=== PATIENT | male | born 1935 | race Caucasian/White ===

== ENCOUNTER 2016-12-29 05:50 | Inpatient (IN) | payer OTHER ==
[2016-12-11 10:28] LABS: % IMMATURE GRANULYOCYTES 0.2 % (0.0-1.1); ABSOLUTE IMMATURE GRANULOCYTES 0.01 10^3/uL (0.00-0.10); ADD DIFF? NO; ADD MORPH? NO; ADD SCAN? NO; ATYPICAL LYMPHOCYTE FLAG 0 (0-99); FRAGMENT RBC FLAG 0 (0-99); HEMATOCRIT 46.3 % (40.0-51.0); HEMOGLOBIN 15.1 g/dL (13.7-17.5); LEFT SHIFT FLG 0 (0-99); LIPEMIA HEMOLYSIS FLAG 80 (0-99); MEAN CELL HEMOGLOBIN 30.3 pg (27.9-34.1); MEAN CELL HEMOGLOBIN CONCENTR. 32.6 g/dL (32.4-36.7); MEAN CELL VOLUME 92.8 fL (81.5-99.8); MEAN PLATELET VOLUME 10.8 fL (8.7-11.7); PLATELET CLUMPS FLAG 0 (0-99); PLATELET COUNT 167 10^3/uL (150-400); RED BLOOD CELL COUNT 4.99 10^6/uL (4.40-6.38); RED CELL DISTRIBUTION WIDTH 13.2 % (11.5-15.2)
--- NOTE | 2016-12-28 18:53 | GHP ---
[f rep st] PREOP HISTORY AND PHYSICAL DATE OF ADMISSION: 12/29/2016 HISTORY: The patient is an 81-year-old male, who presents with left knee osteoarthritis. His knee is painful, he has limited motion and swelling, he has limited tolerance of activity such as standin g or walking, his gait is affected. Therapies have included multiple rounds of viscosupplementation , previous knee arthroscopy, and he has tried to remain active and keep his legs strong. X-ray shows significant osteoarthritis with decreased joint space, degenerative spurring. A left to sruthi knee arthroplasty is planned. PAST MEDICAL HISTORY: Remarkable for intermittent atrial fibrillation. He also has hypertension an d elevated lipids. He has also had vitamin D deficiency. His surgeries include a left knee arthros copy in 2015. He has also had an interposition arthroplasty of his thumb, a right knee scope back i n 2012. ALLERGIES: Penicillin. MEDICATIONS: Atorvastatin 10 mg p.o. daily, Pradaxa 150 mg p.o. daily; and he has stopped that appr opriately 7 doses before surgery, metoprolol 25 mg p.o. daily, vitamins and supplements, Flomax 0.4 mg p.o. daily. SOCIAL HISTORY: Former smoker. REVIEW OF SYSTEMS: Positive from a cardiopulmonary standpoint for his elevated lipids, his intermit tent atrial fibrillation and hypertension. PHYSICAL EXAMINATION: GENERAL: The patient is a well-developed, well-nourished male, in no apparen t distress. HEAD AND NECK: Normocephalic, atraumatic. CHEST: Clear. CARDIOVASCULAR: Regular ra te and rhythm. ABDOMEN: Soft. NEUROLOGIC: He is alert and oriented x3. EXTREMITIES: Left knee shows a slight flexion contracture. He is flexing to about 110 degrees. He has a small effusion. He tends towards varus alignment. SKIN: Intact. NEUROVASCULAR: Intact. DIAGNOSTIC STUDIES: X-rays, as noted, show degenerative changes consistent with osteoarthritis, dec reased joint space, subchondral sclerosis, degenerative lipping, narrowing of joint space. IMPRESSION: Left knee osteoarthritis. PLAN: Left total knee arthroplasty. Benefits and risks of surgery have been reviewed, including th e risks of infection, damage to blood vessels or nerves, failure or loosening of components and need for revision, blood clot in the leg or lung, bleeding and need for transfusion. The rigorous natur e of the rehabilitation has also been explained. He has signed his consent form and wishes to proceed. /[id number]/MODL
[2016-12-29] MEDS ORDERED: FAMOTIDINE 20 MG TAB PO ONE (06:00)
[2016-12-29] MEDS ORDERED: TRANEXAMIC ACID 800 MG in NS 100 ML IV ONE (06:00)
[2016-12-29] MEDS ORDERED: ROPI/epiNEPH/KETOROLAC JOINT COCKTAIL IU ONE (06:00)
[2016-12-29] MEDS ORDERED: ACETAMINOPHEN 325 MG TAB PO ONE (06:00)
[2016-12-29] MEDS ORDERED: CEFAZOLIN 2 GM/DEXTR 100 ML IV ONE (06:00)
[2016-12-29] MEDS ORDERED: DEXAMETHASONE 4 MG/ML VIAL IVP ONE (06:00)
[2016-12-29] MEDS ORDERED: POVIDONE-IODINE 20 ML in SODIUM CL IRRIG SOLUTION 500 ML IRR ONE (06:00)
[2016-12-29] MEDS ORDERED: CHLORHEXIDINE GLUC HIBICLENS 118 ML BTL TP ONE (06:00)
[2016-12-29] MEDS ORDERED: ceFAZolin 1 GM/5 ML SYR ONE (06:53)
[2016-12-29] MEDS ORDERED: MIDAZOLAM 2 MG/2 ML VIAL ONE (07:09)
[2016-12-29] MEDS ORDERED: PROPOFOL/EMULSION 500 MG/50 ML BOTTLE IV ONE (07:22)
[2016-12-29] MEDS ORDERED: ROPIVACAINE HCL 150 MG/30 ML INJ ONE (08:16)
[2016-12-29] MEDS ORDERED: epHEDrine SULFATE 10 MG/ML SYR ONE ×2 (08:16→09:32)
[2016-12-29] MEDS ORDERED: ONDANSETRON 4 MG/2 ML VIAL ONE (09:31)
--- NOTE | 2016-12-29 10:33 | GOP ---
[f rep st] OPERATIVE REPORT DATE OF OPERATION: 12/29/2016 SURGEON: Kem Hinton MD SCHEDULE MAKER: Rian Kilpatrick [facility], [facility] ANESTHESIOLOGIST: Ayesha Angel MD. PREOPERATIVE DIAGNOSIS: Left knee osteoarthritis. POSTOPERATIVE DIAGNOSIS: Left knee osteoarthritis. PROCEDURE PERFORMED: Left total knee arthroplasty. FINDINGS: SPECIMENS: Included excised bone. ESTIMATED BLOOD LOSS: Minimal. INDICATIONS: The patient is an 81-year-old male who presents with history, exam, and x-rays consist ent with severe left knee osteoarthritis for which he has tried appropriate conservative measures, i ncluding exercises, previous scope debridement, multiple rounds of viscosupplementation. Left total knee arthroplasty is planned. DESCRIPTION OF PROCEDURE: The patient was taken to the operating room, and in the sitting position, a spinal anesthetic was administered by Dr. Angel, and we will plan to do an adductor block in pos top recovery. He received IV sedation. He received 2 g of IV Ancef. He received tranexamic acid i n the usual protocol. The tourniquet was fit high on the left thigh. The left leg was elevated, ex sanguinated, and the tourniquet inflated to 275 mmHg. I made a longitudinal incision in the midline , dissected through subcutaneous tissue. I used a medial parapatellar arthrotomy. Patella was inve rted, debrided, measured to be 24 mm thick. 9 mm of bone cartilage were removed, and I sized the landry rface as a 38 trial. I drilled appropriate PEG holes, and a 38 mm diameter trial was an excellent f it. The knee was then flexed. I drilled a charter pilot hole in the distal femur using an intramedullary d evice for the femur and a 5-degree cutting block. I used an extra 2 mm of resection for the slight flexion contracture. I sized the femur between a 7 and 8. I downsized to a 7, advanced the trials a bit anterior, and made appropriate anterior-posterior chamfer cuts and the notch in preparation fo r this bi-cruciate stabilized knee. I then flexed the knee, placed posterior and lateral retractors . I used an extramedullary device for cutting the tibia. I designed its alignment, posterior slope , appropriate rotation, and appropriate amount of bone resection, and a tibial cut was made. I size d this surface to a 6. The size 6 was pinned on 1 side. I fine-tuned the rotation, marked this on the anterior tibia. I then completed the tibial prep. The components were all removed. Copious an tibiotic jet lavage irrigation was used to dry the surfaces. Methylmethacrylate was applied to the tibia, and the size [address] Cement was applied to the femur, and likewise, the component hammered into place, and then a trial liner was placed, and the knee extended. The p atellar component was held with a clamp over its cement mantle. After the cement had hardened, I di d trial reductions. I found the 9 mm spacer allowed full extension, excellent roll back and flexion , and appropriate ligamentous stability, so the size 9 mm thick crosslink polyethylene liner was sna pped into place. The knee was irrigated with antibiotic solution as well as a dilute Betadine solut ion. The arthrotomy was closed with interrupted wuwhuf-pd-cssbv sutures of 0 Mersilene, subcutaneou s tissue with 2-0 Monocryl, and the skin with jack. The wound was dressed with Betadine-soaked A daptic, 4 x 4's, sterile Webril, and long leg BCEK stocking. DRAINS: None. COUNTS: All counts were correct. DISPOSITION: The patient was taken in stable condition to recovery. TOURNIQUET TIME: 90 minutes. My surgical device sales representative was a medical necessity for this total knee replacement. SUMMARY OF COMPONENTS: This is a [employer] Journey bi-cruciate stabilized knee. All compone nts cemented. The femur is Oxinium, femur size 7, tibia size 6. The crosslink polyethylene liner i s 9 mm thick, and the patella is 38. /[id number]/MODL
[2016-12-29] MEDS ORDERED: LR 1,000 ML IV ONE (10:49)
[2016-12-29] MEDS ORDERED: LIDOCAINE 1% 5 ML SDV ID PRN (10:49)
[2016-12-29] MEDS ORDERED: ONDANSETRON 4 MG/2 ML VIAL IVP PRN ×2 (11:46→13:56)
[2016-12-29] MEDS ORDERED: ONDANSETRON DISINTEGRATING 4 MG TAB PO PRN ×2 (11:47→13:56)
[2016-12-29] MEDS ORDERED: BISACODYL 10 MG SUPP PR PRN (13:56)
[2016-12-29] MEDS ORDERED: oxyCODONE IR 5 MG TAB PO PRN (13:56)
[2016-12-29] MEDS ORDERED: PROMETHAZINE HCL 25 MG/ML INJ IVP PRN (13:56)
[2016-12-29] MEDS ORDERED: PHARMACY PAIN CONSULT 1 EA MISC PRN (13:56)
[2016-12-29] MEDS ORDERED: diphenhydrAMINE 25 MG CAP PO PRN (13:56)
[2016-12-29] MEDS ORDERED: POLYETHYLENE GLYCOL 3350 17 GM PKT PO PRN (13:56)
[2016-12-29] MEDS ORDERED: DIPHENOXYLATE/ATROPINE LOMOTIL 1 TAB PO PRN (13:56)
[2016-12-29] MEDS ORDERED: LACTULOSE 20 GM/30 ML UDCUP PO PRN (13:56)
[2016-12-29] MEDS ORDERED: KETOROLAC 30 MG/1 ML SDV IVP PRN (13:56)
[2016-12-29] MEDS ORDERED: CYCLOBENZAPRINE 10 MG TAB PO PRN (13:56)
[2016-12-29] MEDS ORDERED: PROMETHAZINE HCL 25 MG SUPPR PR PRN (13:56)
[2016-12-29] MEDS ORDERED: METOCLOPRAMIDE 10 MG/2 ML VIAL IVP PRN (13:56)
[2016-12-29] MEDS ORDERED: TEMAZEPAM 15 MG CAP PO PRN (13:56)
[2016-12-29] MEDS ORDERED: MAGNESIUM HYDROXIDE 30 ML UDCUP PO PRN (13:56)
[2016-12-29] MEDS ORDERED: LR 1,000 ML IV SCH (14:00)
[2016-12-29] MEDS: ceFAZolin 2 GM/DEXTROSE 100 ML IV SCH ×2 (14:51→22:37)
[2016-12-29] MEDS: oxyCODONE IR 5 MG TAB PO PRN ×2 (15:05→16:05)
[2016-12-29] MEDS: ACETAMINOPHEN 325 MG TAB PO SCH (17:47)
[2016-12-29] MEDS ORDERED: ATORVASTATIN CALCIUM 10 MG TAB PO SCH (18:00)
[2016-12-29] MEDS: SENNOSIDES/DOCUSATE SODIUM TAB PO SCH (19:57)
[2016-12-29] MEDS: DABIGATRAN ETEXILATE MESYL 150 MG CAP PO SCH (19:58)
[2016-12-29] MEDS: FAMOTIDINE 20 MG TAB PO SCH (19:58)
[2016-12-29] MEDS: ASPIRIN 325 MG TAB PO SCH ×3 (20:06→22:44)
[2016-12-29 23:19] VITALS: RESP 16
[2016-12-30 05:01] LABS: HEMOGLOBIN 13.1 g/dL (13.7-17.5)
[2016-12-30] MEDS: ACETAMINOPHEN 325 MG TAB PO SCH ×3 (06:22→12:54)
--- NOTE | 2016-12-30 08:08 | SOAPPROG ---
SOAP Progress Note Assessment/Plan: Assessment: 12/30/16 POD#1 L TKA, Hct 39, pain mild, did require straight cath, xray fine Plan: 12/30/16 08:05 PT/OT and home, oxy, pradaxa, home PT Objective: Vital Signs Temp Pulse Resp BP Pulse Ox 36.5 C 60 16 112/63 97 12/29/16 23:17 12/29/16 23:17 12/29/16 23:17 12/29/16 23:17 12/29/16 23:17 Laboratory Results 12/30/16 04:32 12/29/16 12/30/16 12/31/16 05:59 05:59 05:59 Intake Total 2760 Output Total 3060 Balance -300 ICD10 Worksheet Patient Problems: Problems Problem Status Onset Osteoarthritis of left knee Acute - ICD10 Problem Qualifiers (1) Osteoarthritis of left knee Qualifiers: Osteoarthritis type: O
[2016-12-30] MEDS ORDERED: TAMSULOSIN HCL 0.4 MG CAP PO SCH (09:00)
[2016-12-30] MEDS ORDERED: METOPROLOL SUCCINATE XR 25 MG TAB PO SCH (09:00)
[2016-12-30] MEDS ORDERED: CHOLECALCIFEROL VIT D3 2,000 UNITS TAB/CAP PO SCH (09:00)
[2016-12-30] MEDS: ASPIRIN 325 MG TAB PO SCH (09:10)
[2016-12-30] MEDS: DABIGATRAN ETEXILATE MESYL 150 MG CAP PO SCH (09:11)
--- NOTE | 2016-12-30 09:11 | PDIAF ---
- Diagnosis Code Status: Full Code - Medication Management Discharge Medications: Medications to Continue on Transfer Atorvastatin Calcium [Lipitor 10 mg (*)] 10 mg PO DAILY@1800 11/28/16 [Last Taken 12/25/16] Dabigatran Etexilate Mesyl [Pradaxa 150 MG (*)] 150 mg PO BID 11/28/16 [Last Taken 12/25/16 19:00] Multivitamins [Multivitamin (*)] 1 each PO DAILY 11/28/16 [Last Taken 12/25/16] Tamsulosin HCl 0.4 mg PO DAILY 11/28/16 [Last Taken 12/25/16] Cholecalciferol Vit D3 [Vitamin D3 2000 units tab (OTC)] 4,000 units PO DAILY [Last Taken 12/25/16] Metoprolol Succinate Xr [Toprol Xl 25 mg (*)] 12.5 mg PO DAILY 12/05/16 [Last Taken 12/29/16 05:00] Tamsulosin HCl [Flomax 0.4 MG (*)] 0.4 mg PO DAILY #0 cap 12/30/16 [Last Taken Unknown] oxyCODONE IR [Oxycodone Ir (*)] 5 - 10 mg PO Q3HRS PRN #0 tab 12/30/16 [Last Taken Unknown] Discharge Medications: Refer to the Discharge Home Medication list for PRN reason. - Orders Services needed: Home Care, Physical Therapy Home Care Face to Face: I certify that this patient was under my care and that I had the required [id number]-rv-[id number] encounter meeting the encounter requirements on the discharge day. My findings support the fact that the patient is homebound as defined in CMS Chapter 7 Medicare Benefits Manual 30.1.1, The condition of the patient is such that there exists a normal inability to leave home and consequently, leaving home would require a considerable and taxing effort. Diet Recommendation: no restrictions on diet Diet Texture: Regular Texture Diet Date to Remove Sutures/Ja: 01/12/17 - Follow Up Care Current Providers and Referrals: NONE *PRIMARY CARE P,. [Primary Care Provider] -
[2016-12-30] MEDS: SENNOSIDES/DOCUSATE SODIUM TAB PO SCH (09:14)
[2016-12-30] MEDS: FAMOTIDINE 20 MG TAB PO SCH (09:15)
[2016-12-30 12:12] VITALS: BP 140/69; PULSE 68; TEMP 98.2; O2SAT 95
[2016-12-30] MEDS: oxyCODONE IR 5 MG TAB PO PRN (12:49)
== END 2016-12-30 13:18 | disposition home health service (06) | DRG 470 ==
LOC: F3N 05:50
PROVIDERS: ADMIT Orthopaedic Surgery; ATTEND Orthopaedic Surgery
PROC: 0SRD0J9 Replacement of Left Knee Joint with Synthetic Substitute, Cemented, Open Approach (ICD-10-PCS; principal; 2016-12-29 07:15)
DX: M17.12 Unilateral primary osteoarthritis, left knee (principal); I48.91 Unspecified atrial fibrillation; I10 Essential (primary) hypertension; E78.5 Hyperlipidemia, unspecified; E55.9 Vitamin D deficiency, unspecified; Z87.891 Personal history of nicotine dependence
CPT/HCPCS: 97110-GP; 97116-GP; 97161-GP; 97165-GO; 97530-GP; C1713; G8978-GP-CI; G8979-GP-CI; G8980-GP-CI; G8987-GO-CI; G8988-GO-CI; G8989-GO-CI; J0171; J0690; J1100; J1885; J2250; J2405; J2704; J2795

== ENCOUNTER 2017-06-01 05:41 | Inpatient (IN) | payer OTHER ==
--- NOTE | 2017-05-31 11:36 | GHP ---
[f rep st] PREOP HISTORY AND PHYSICAL DATE OF ADMISSION: 06/01/2017 SURGERY DATE: 06/01/2017. HISTORY: The patient is an 81-year-old male who presents with persistent right knee pain, stiffness and swelling. He has significant right knee osteoarthritis. This affects his range of motion, affec ts his gait including activities of daily living. He has tried appropriate conservative measures and he has even had a previous knee scope and debridement and meniscal work some years ago. His x-rays show osteoarthritis, narrowing of the medial joint space especially. A right total knee arthroplasty is planned. He has had a successful left total knee arthroplasty. PAST MEDICAL HISTORY: Significant for atrial fibrillation, hyperlipidemia, osteoarthritis. CURRENT MEDICATIONS: Include metoprolol ER 25 mg extended release q.24 hours, atorvastatin 10 mg p.o . daily, Pradaxa 150 mg p.o. daily and he will stop this medication as instructed 7 doses before his surgery, tamsulosin 0.4 mg tablets. ALLERGIES: He has an allergy to penicillin. He tolerated Ancef with his opposite total knee. SOCIAL HISTORY: He is a former smoker. He is a retired teacher. SURGICAL HISTORY: Includes a left total knee arthroplasty in December of 2016. He has had his knees sco ped, the left side in 2015, his right knee in 2012. He has had an interposition arthroplasty of the CMC joint of his hand in 2013. REVIEW OF SYSTEMS: Positive from the cardiac standpoint for atrial fibrillation and he has been anti coagulated. PHYSICAL EXAMINATION: GENERAL: The patient is a well-developed, well-nourished male, in no apparent distress. HEAD AND NECK: Normocephalic, atraumatic. CHEST: Clear. CARDIOVASCULAR: Regular rate and rhythm. ABDOMEN: Soft. NEUROLOGIC: He is alert and oriented x3. EXTREMITIES: Examination o f the right knee shows about 125 degrees of flexion. Slight flexion contracture. He tends toward va fariha alignment. He has tenderness along the medial joint line. Small effusion. NEUROVASCULAR: Skin is intact. IMAGING: X-rays show tricompartment osteoarthritis. He has narrowing of joint space, especially med ially. IMPRESSION: Right knee osteoarthritis. PLAN: A right total knee arthroplasty. Benefits and risks of surgery have been reviewed with the xochilt epstein. He understands that the risks include infection, damage to blood vessel or nerve, failure or loosening of components, blood clot in the leg or lungs, bleeding and the need for transfusion. We w ill resume his Pradaxa postoperatively. This worked out fine for him last time. He is well aware of the rehabilitation, is anxious to proceed. Has signed his consent form. /[id number]/MODL
[2017-06-01] MEDS ORDERED: ROPIVACAINE 0.2% 80 MG, EPINEPHrine 0.2 MG, KETOROLAC TROMETHAMINE 30 MG in BAG 0 ML IU ONE (06:00)
[2017-06-01] MEDS ORDERED: TRANEXAMIC ACID 800 MG in NS 100 ML IV ONE (06:00)
[2017-06-01] MEDS ORDERED: POVIDONE-IODINE 20 ML in SODIUM CL IRRIG SOLUTION 500 ML IRR ONE (06:00)
[2017-06-01] MEDS ORDERED: DEXAMETHASONE 4 MG/ML VIAL IVP ONE (06:02)
[2017-06-01] MEDS ORDERED: FAMOTIDINE 20 MG TAB PO ONE (06:02)
[2017-06-01] MEDS ORDERED: ACETAMINOPHEN 325 MG TAB PO ONE (06:02)
[2017-06-01] MEDS ORDERED: ceFAZolin 2 GM/SWFI 2 GM/20 ML SYR IVP ONE (06:02)
[2017-06-01] MEDS ORDERED: LR 1,000 ML IV ONE (06:19)
[2017-06-01] MEDS ORDERED: LIDOCAINE 1% 2 ML INJ ID PRN (06:19)
[2017-06-01] MEDS ORDERED: ceFAZolin 1 GM/5 ML SYR ONE (06:21)
[2017-06-01] MEDS ORDERED: PROPOFOL/EMULSION 500 MG/50 ML BOTTLE IV ONE (06:56)
[2017-06-01] MEDS ORDERED: LIDOCAINE 2% 5 ML SDV ONE (07:00)
[2017-06-01] MEDS ORDERED: BUPIVACAINE 0.5% 30 ML SDV ONE (07:02)
--- NOTE | 2017-06-01 07:50 | PDANEPAE ---
ANE History of Present Illness right knee OA for TKA ANE Past Medical History - Cardiovascular History Hx Hypertension: Yes Hx Arrhythmias: Yes Hx Chest Pain: No Hx Coronary Artery / Peripheral Vascular Disease: No Hx CHF / Valvular Disease: No Hx Palpitations: No Cardiovascular History Comment: afib. htn. sees Dr. Renee at [facility] - Pulmonary History Hx COPD: No Hx Asthma/Reactive Airway Disease: No Hx Recent Upper Respiratory Infection: No Hx Oxygen in Use at Home: No Hx Sleep Apnea: Yes Sleep Apnea Screening Result - Last Documented: Positive Pulmonary History Comment: chato triggers - Neurologic History Hx Cerebrovascular Accident: No Hx Seizures: No Hx Dementia: No - Endocrine History Hx Diabetes: No Obesity: no - Renal History Hx Renal Disorders: Yes Renal History Comment: bph - Liver History Hx Hepatic Disorders: No - Neurological & Psychiatric Hx Hx Neurological and Psychiatric Disorders: No - Cancer History Hx Cancer: No - Congenital Disorder History Hx Congenital Disorders: No - GI History Hx Gastrointestinal Disorders: No - Other Health History Other Health History: wears bilateral hearing aides. wears glasses - Chronic Pain History Chronic Pain: Yes (right knee) - Surgical History Prior Surgeries: 12/29/16 left TKA with Jamaal. bilateral knee scopes. cataract bilateral ANE Review of Systems Review of systems is: negative Review of Systems: - Exercise capacity METS (RN): 4 METS ANE Patient History - Allergies Allergies/Adverse Reactions: Penicillins Allergy (Unknown, Verified 04/28/17 16:25) Other-Enter Comments - Home Medications Home medications: home medication list seen and reviewed Home Medications: Atorvastatin Calcium [Lipitor 10 mg (*)] 10 mg PO DAILY@1800 11/28/16 [Last Taken 05/31/17 18:00] Dabigatran Etexilate Mesyl [Pradaxa 150 MG (*)] 150 mg PO BID 11/28/16 [Last Taken 05/28/17] Multivitamins [Multivitamin (*)] 1 each PO DAILY 11/28/16 [Last Taken 05/31/17] Tamsulosin HCl 0.4 mg PO DAILY 11/28/16 [Last Taken 06/01/17 05:00] Cholecalciferol Vit D3 [Vitamin D3 2000 units tab (OTC)] 4,000 units PO DAILY [Last Taken 05/31/17] Metoprolol Succinate Xr [Toprol Xl 25 mg (*)] 12.5 mg PO DAILY 12/05/16 [Last Taken 05/31/17 07:00] Acetaminophen [Tylenol ES 500 mg (*)] 500 - 1,000 mg PO Q6 PRN 04/21/17 [Last Taken Unknown] - NPO status NPO Since - Liquids (Date): 05/31/17 NPO Since - Liquids (Time): 21:30 NPO Since - Solids (Date): 05/31/17 NPO Since - Solids (Time): 14:00 - Anes Hx Anes Hx: no prior problems - Smoking Hx Smoking Status: Former smoker - Family Anes Hx Family Hx Anesthesia Complications: none ANE Labs/Vital Signs - Vital Signs Blood Pressure: 136/77 Heart Rate: 60 Respiratory Rate: 20 O2 Sat (%): 96 Height: 172.72 cm Weight: 79.379 kg ANE Physical Exam - Airway Neck exam: FROM Mallampati Score: Class 1 Mouth exam: normal dental/mouth exam - Pulmonary Pulmonary: no respiratory distress - Cardiovascular Cardiovascular: regular rate and rhythym - ASA Status ASA Status: III ANE Anesthesia Plan Anesthesia Plan: spinal Regional Anesthesia: single shot NB, adductor canal FNB Urgent/Emergent Case: Jo cardenas completed preop but documented later for safe timely pt care
[2017-06-01] MEDS ORDERED: ONDANSETRON 4 MG/2 ML VIAL IVP PRN ×2 (08:16→09:28)
[2017-06-01] MEDS ORDERED: OXYCODONE/APAP 5/325 TAB PO PRN (08:16)
[2017-06-01] MEDS ORDERED: ALBUTEROL 3 ML DEYVIAL IH PRN (08:16)
[2017-06-01] MEDS ORDERED: NALOXONE HCL 0.4 MG/ML INJ IVP PRN (08:16)
[2017-06-01] MEDS ORDERED: LR 500 ML IV PRN (08:16)
[2017-06-01] MEDS ORDERED: ACETAMINOPHEN 500 MG TAB PO PRN (08:16)
[2017-06-01] MEDS ORDERED: HYDROmorphONE/DILAUDID 1 MG/ML INJ IVP PRN (08:16)
[2017-06-01] MEDS ORDERED: fentaNYL 100 MCG/2 ML INJ IVP PRN (08:16)
[2017-06-01] MEDS ORDERED: LABETALOL HCL 50 MG/10 ML SYR IVP PRN (08:16)
[2017-06-01] MEDS ORDERED: PROPOFOL 200 MG/20 ML VIAL ONE (08:57)
[2017-06-01] MEDS ORDERED: DIPHENOXYLATE/ATROPINE LOMOTIL 1 TAB PO PRN (09:28)
[2017-06-01] MEDS ORDERED: METOCLOPRAMIDE 10 MG/2 ML VIAL IVP PRN (09:28)
[2017-06-01] MEDS ORDERED: PROMETHAZINE HCL 25 MG/ML INJ IVP PRN (09:28)
[2017-06-01] MEDS ORDERED: MAGNESIUM HYDROXIDE 30 ML UDCUP PO PRN (09:28)
[2017-06-01] MEDS ORDERED: BISACODYL 10 MG SUPP PR PRN (09:28)
[2017-06-01] MEDS ORDERED: POLYETHYLENE GLYCOL 3350 17 GM PKT PO PRN (09:28)
[2017-06-01] MEDS ORDERED: diphenhydrAMINE 25 MG CAP PO PRN (09:28)
[2017-06-01] MEDS ORDERED: LACTULOSE 20 GM/30 ML UDCUP PO PRN (09:28)
[2017-06-01] MEDS ORDERED: KETOROLAC 30 MG/1 ML SDV IVP PRN (09:28)
[2017-06-01] MEDS ORDERED: TEMAZEPAM 15 MG CAP PO PRN (09:28)
[2017-06-01] MEDS ORDERED: CYCLOBENZAPRINE 10 MG TAB PO PRN (09:28)
[2017-06-01] MEDS ORDERED: ONDANSETRON DISINTEGRATING 4 MG TAB PO PRN (09:28)
[2017-06-01] MEDS ORDERED: PROMETHAZINE HCL 25 MG SUPPR PR PRN (09:28)
[2017-06-01] MEDS ORDERED: LR 1,000 ML IV SCH (09:30)
--- NOTE | 2017-06-01 09:35 | POSTANESTH ---
Post Anesthetic Evaluation Cardiovascular Status: Normal, Stable Respiratory Status: Normal, Stable Level of Consciousness/Mental Status: Can Participate in Eval Pain Control: Adequate, Prn Tx Ordered Nausea/Vomiting Control: Adequate, Prn Tx Ordered Complications Possibly Related to Anesthesia: None Noted
--- NOTE | 2017-06-01 10:19 | GOP ---
[f rep st] OPERATIVE REPORT DATE OF OPERATION: 06/01/2017 SURGEON: Kem Hinton MD HYDROELECTRIC PLANT STRUCTURAL ENGINEER: Rian Kilpatrick, CSFA, LSA PREOPERATIVE DIAGNOSIS: Right knee osteoarthritis. POSTOPERATIVE DIAGNOSIS: Right knee osteoarthritis. PROCEDURE PERFORMED: Right total knee arthroplasty. FINDINGS: SPECIMENS: Include excised bone. ESTIMATED BLOOD LOSS: minimal. INDICATIONS: The patient presents with right knee osteoarthritis by history, exam and x-rays. DESCRIPTION OF PROCEDURE: The patient was taken to the operating room and seated on the operating ta ble. A spinal anesthetic was provided. He was then placed supine. I used a Quiroz catheter on this case because on last total joint, he had urinary retention issues. He received IV sedation. He rece ived 2 g of IV Ancef. He received his 1st dose of tranexamic acid. A roll was placed beneath the ri [facility] hip to neutralize rotation of his right knee. The right leg was prepped and draped out with chlo rhexidine in the usual fashion. The limb was elevated and exsanguinated. The tourniquet was inflate d to 275 mmHg. I made a longitudinal incision in the midline. I used a medial parapatellar arthroto my. I inverted the patella. I measured its thickness at 25 mm. I removed 9 mm of cartilage and bon e to accommodate the implant. The patella was sized to a 38. I drilled peg holes, and the combinati on of the patella with the trial re-established the thickness and this was a good fit on the patellar surface. The patella was inverted. The knee was flexed. I drilled a corporate pilot hole in the distal femu r using intramedullary alignment jig on the femur, 5 degrees of valgus, +2 extra cut for his small fl exion contracture; and a distal cut was made. I extended the knee and marked the tibial surface to m ark the minimum cut necessary there. I sized the femur between a 7 and 8. I downsized to a 7, moved the cutting block anteriorly and completed my anterior, posterior and chamfer cuts as well as the no tch cuts for this bi-cruciate stabilized knee. I used an extramedullary device on the tibia, I adjus beck for posterior slope and rotation. I made a perpendicular cut. I sized the tibial surface to a s ize 6 and made sure it was a correct fit and not overlapping. I dialed in its rotation and completed the tibial prep. All components were removed. I jet lavaged all the surfaces. Cement was applied to the tibia, and the tibial component was hammered into place. Likewise, cement was applied to the femur, the femoral component was applied and the patellar component was held with a clamp. Once the cement had hardened, I went through a series of trial reductions. I found that a 9 mm insert was bettie ropriate, and the Crosslink poly 9 mm insert was snapped into the tibial tray. I used antibiotic irr igation including a Betadine rinse. I used a joint cocktail infiltrated through the soft tissues as well. The knee had nice extension, had good rollback in flexion and appropriate collateral stability . The arthrotomy was closed with interrupted cqfszo-gr-rxupd sutures of 0 Mersilene, subcutaneous ti ssue with 2-0 Monocryl. I closed the skin with interrupted 3-0 Prolene vertical mattress sutures. T he wound was dressed with Betadine-soaked Adaptic, 4 x 4, sterile Webril, and long-leg BECK stocking. All counts were correct, and the patient was taken in stable condition to recovery. COMPLICATIONS: There were no complications. DRAINS: No drains. TOURNIQUET TIME: 71 minutes. SUMMARY OF COMPONENTS: This is a [employer]hew Journey knee, bi-cruciate stabilized, all componen ts cemented. The femur is Oxinium. The articular tray is Crosslink. The femur is a size 7, the tib ia a size 6, patella 38 mm, and the liner 9 mm thick. My social services assistant was a medical necessity for this joint replacement. /[id number]/MODL
--- NOTE | 2017-06-01 10:19 | GOP ---
[f rep st] OPERATIVE REPORT DATE OF OPERATION: 06/01/2017 SURGEON: Kem Hinton MD IRON WORKER FOREMAN: Rian Kilpatrick, CSFA, LSA PREOPERATIVE DIAGNOSIS: Right knee osteoarthritis. POSTOPERATIVE DIAGNOSIS: Right knee osteoarthritis. PROCEDURE PERFORMED: Right total knee arthroplasty. FINDINGS: SPECIMENS: Include excised bone. ESTIMATED BLOOD LOSS: minimal. INDICATIONS: The patient presents with right knee osteoarthritis by history, exam and x-rays. DESCRIPTION OF PROCEDURE: The patient was taken to the operating room and seated on the operating ta ble. A spinal anesthetic was provided. He was then placed supine. I used a Quiroz catheter on this case because on last total joint, he had urinary retention issues. He received IV sedation. He rece ived 2 g of IV Ancef. He received his 1st dose of tranexamic acid. A roll was placed beneath the ri [facility] hip to neutralize rotation of his right knee. The right leg was prepped and draped out with chlo rhexidine in the usual fashion. The limb was elevated and exsanguinated. The tourniquet was inflate d to 275 mmHg. I made a longitudinal incision in the midline. I used a medial parapatellar arthroto my. I inverted the patella. I measured its thickness at 25 mm. I removed 9 mm of cartilage and bon e to accommodate the implant. The patella was sized to a 38. I drilled peg holes, and the combinati on of the patella with the trial re-established the thickness and this was a good fit on the patellar surface. The patella was inverted. The knee was flexed. I drilled a packing machine pilot can router hole in the distal femu r using intramedullary alignment jig on the femur, 5 degrees of valgus, +2 extra cut for his small fl exion contracture; and a distal cut was made. I extended the knee and marked the tibial surface to m ark the minimum cut necessary there. I sized the femur between a 7 and 8. I downsized to a 7, moved the cutting block anteriorly and completed my anterior, posterior and chamfer cuts as well as the no tch cuts for this bi-cruciate stabilized knee. I used an extramedullary device on the tibia, I adjus beck for posterior slope and rotation. I made a perpendicular cut. I sized the tibial surface to a s ize 6 and made sure it was a correct fit and not overlapping. I dialed in its rotation and completed the tibial prep. All components were removed. I jet lavaged all the surfaces. Cement was applied to the tibia, and the tibial component was hammered into place. Likewise, cement was applied to the femur, the femoral component was applied and the patellar component was held with a clamp. Once the cement had hardened, I went through a series of trial reductions. I found that a 9 mm insert was bettie ropriate, and the Crosslink poly 9 mm insert was snapped into the tibial tray. I used antibiotic irr igation including a Betadine rinse. I used a joint cocktail infiltrated through the soft tissues as well. The knee had nice extension, had good rollback in flexion and appropriate collateral stability . The arthrotomy was closed with interrupted fepygs-gl-ihllz sutures of 0 Mersilene, subcutaneous ti ssue with 2-0 Monocryl. I closed the skin with interrupted 3-0 Prolene vertical mattress sutures. T he wound was dressed with Betadine-soaked Adaptic, 4 x 4, sterile Webril, and long-leg BECK stocking. All counts were correct, and the patient was taken in stable condition to recovery. COMPLICATIONS: There were no complications. DRAINS: No drains. TOURNIQUET TIME: 71 minutes. SUMMARY OF COMPONENTS: This is a Galvez [employer] Nephew Journey knee, bi-cruciate stabilized, all componen ts cemented. The femur is Oxinium. The articular tray is Crosslink. The femur is a size 7, the tib ia a size 6, patella 38 mm, and the liner 9 mm thick. My medical staff assistant was a medical necessity for this joint replacement. /[id number]/MODL
--- NOTE | 2017-06-01 10:19 | GOP ---
[f rep st] OPERATIVE REPORT DATE OF OPERATION: 06/01/2017 SURGEON: Kem Hinton MD SHOP COOPER: Rian Kilpatrick, CSFA, LSA PREOPERATIVE DIAGNOSIS: Right knee osteoarthritis. POSTOPERATIVE DIAGNOSIS: Right knee osteoarthritis. PROCEDURE PERFORMED: Right total knee arthroplasty. FINDINGS: SPECIMENS: Include excised bone. ESTIMATED BLOOD LOSS: minimal. INDICATIONS: The patient presents with right knee osteoarthritis by history, exam and x-rays. DESCRIPTION OF PROCEDURE: The patient was taken to the operating room and seated on the operating ta ble. A spinal anesthetic was provided. He was then placed supine. I used a Quiroz catheter on this case because on last total joint, he had urinary retention issues. He received IV sedation. He rece ived 2 g of IV Ancef. He received his 1st dose of tranexamic acid. A roll was placed beneath the ri [facility] hip to neutralize rotation of his right knee. The right leg was prepped and draped out with chlo rhexidine in the usual fashion. The limb was elevated and exsanguinated. The tourniquet was inflate d to 275 mmHg. I made a longitudinal incision in the midline. I used a medial parapatellar arthroto my. I inverted the patella. I measured its thickness at 25 mm. I removed 9 mm of cartilage and bon e to accommodate the implant. The patella was sized to a 38. I drilled peg holes, and the combinati on of the patella with the trial re-established the thickness and this was a good fit on the patellar surface. The patella was inverted. The knee was flexed. I drilled a remote pilot operator hole in the distal femu r using intramedullary alignment jig on the femur, 5 degrees of valgus, +2 extra cut for his small fl exion contracture; and a distal cut was made. I extended the knee and marked the tibial surface to m ark the minimum cut necessary there. I sized the femur between a 7 and 8. I downsized to a 7, moved the cutting block anteriorly and completed my anterior, posterior and chamfer cuts as well as the no tch cuts for this bi-cruciate stabilized knee. I used an extramedullary device on the tibia, I adjus beck for posterior slope and rotation. I made a perpendicular cut. I sized the tibial surface to a s ize 6 and made sure it was a correct fit and not overlapping. I dialed in its rotation and completed the tibial prep. All components were removed. I jet lavaged all the surfaces. Cement was applied to the tibia, and the tibial component was hammered into place. Likewise, cement was applied to the femur, the femoral component was applied and the patellar component was held with a clamp. Once the cement had hardened, I went through a series of trial reductions. I found that a 9 mm insert was bettie ropriate, and the Crosslink poly 9 mm insert was snapped into the tibial tray. I used antibiotic irr igation including a Betadine rinse. I used a joint cocktail infiltrated through the soft tissues as well. The knee had nice extension, had good rollback in flexion and appropriate collateral stability . The arthrotomy was closed with interrupted uifjls-ey-eoqsa sutures of 0 Mersilene, subcutaneous ti ssue with 2-0 Monocryl. I closed the skin with interrupted 3-0 Prolene vertical mattress sutures. T he wound was dressed with Betadine-soaked Adaptic, 4 x 4, sterile Webril, and long-leg BECK stocking. All counts were correct, and the patient was taken in stable condition to recovery. COMPLICATIONS: There were no complications. DRAINS: No drains. TOURNIQUET TIME: 71 minutes. SUMMARY OF COMPONENTS: This is a [employer] knee, bi-cruciate stabilized, all componen ts cemented. The femur is Oxinium. The articular tray is Crosslink. The femur is a size 7, the tib ia a size 6, patella 38 mm, and the liner 9 mm thick. My actuarial assistant was a medical necessity for this joint replacement. /[id number]/MODL
[2017-06-01] MEDS: ACETAMINOPHEN 325 MG TAB PO SCH ×3 (12:15→23:07)
[2017-06-01] MEDS: oxyCODONE IR 5 MG TAB PO PRN ×4 (15:39→23:07)
[2017-06-01] MEDS: ceFAZolin 2 GM/DEXTROSE 100 ML IV SCH ×2 (15:42→23:07)
[2017-06-01] MEDS ORDERED: ATORVASTATIN CALCIUM 10 MG TAB PO SCH (18:00)
[2017-06-01] MEDS: SENNOSIDES/DOCUSATE SODIUM TAB PO SCH (20:30)
[2017-06-01] MEDS: FAMOTIDINE 20 MG TAB PO SCH (20:30)
[2017-06-01 23:47] VITALS: PULSE 60
[2017-06-02] MEDS: ACETAMINOPHEN 325 MG TAB PO SCH ×2 (05:12→11:34)
[2017-06-02 07:17] VITALS: BP 141/79; RESP 16; TEMP 98.2; O2SAT 99
--- NOTE | 2017-06-02 07:39 | SOAPPROG ---
SOAP Progress Note Assessment/Plan: Assessment: POD#1 R TKA, pain controlled. Hct 38, medina out Plan: 06/02/17 07:37 PT/OT, resume plavix, home care, oxy Objective: Vital Signs Temp Pulse Resp BP Pulse Ox 36.8 C 60 16 141/79 H 99 06/02/17 07:16 06/02/17 07:16 06/02/17 07:16 06/02/17 07:16 06/02/17 07:16 Laboratory Results 06/02/17 05:07 06/01/17 06/02/17 06/03/17 05:59 05:59 05:59 Intake Total 2850 Output Total 4250 Balance -1400 ICD10 Worksheet Patient Problems: Problems Problem Status Onset Osteoarthritis of left knee Acute
--- NOTE | 2017-06-02 07:48 | PDIAF ---
- Diagnosis Code Status: Full Code - Medication Management Discharge Medications: Medications to Continue on Transfer Atorvastatin Calcium [Lipitor 10 mg (*)] 10 mg PO DAILY@1800 11/28/16 [Last Taken 05/31/17 18:00] Dabigatran Etexilate Mesyl [Pradaxa 150 MG (*)] 150 mg PO BID 11/28/16 [Last Taken 05/28/17] Multivitamins [Multivitamin (*)] 1 each PO DAILY 11/28/16 [Last Taken 05/31/17] Tamsulosin HCl 0.4 mg PO DAILY 11/28/16 [Last Taken 06/01/17 05:00] Cholecalciferol Vit D3 [Vitamin D3 2000 units tab (OTC)] 4,000 units PO DAILY [Last Taken 05/31/17] Metoprolol Succinate Xr [Toprol Xl 25 mg (*)] 12.5 mg PO DAILY 12/05/16 [Last Taken 05/31/17 07:00] Acetaminophen [Tylenol ES 500 mg (*)] 500 - 1,000 mg PO Q6 PRN 04/21/17 [Last Taken Unknown] oxyCODONE IR [Oxycodone Ir (*)] 5 - 10 mg PO Q4 PRN #30 tab 06/02/17 [Last Taken Unknown] Discharge Medications: Refer to the Discharge Home Medication list for PRN reason. - Orders Services needed: Physical Therapy Diet Recommendation: no restrictions on diet Diet Texture: Regular Texture Diet Vicente Stockings Discontinue Date: in 2 wks Wound Care Instructions: keep covered, clean Sutures/[place] Site: knee, jack, will remove in my office 2 wks Activity/Weight Bearing Restrictions: WBAT, full ROM - Follow Up Care Current Providers and Referrals: VENTURA WHALEN [Other]
[2017-06-02] MEDS: FAMOTIDINE 20 MG TAB PO SCH (08:14)
[2017-06-02] MEDS: SENNOSIDES/DOCUSATE SODIUM TAB PO SCH (08:14)
[2017-06-02] MEDS ORDERED: TAMSULOSIN HCL 0.4 MG CAP PO SCH (09:00)
[2017-06-02] MEDS ORDERED: CHOLECALCIFEROL VIT D3 2,000 UNITS TAB/CAP PO SCH (09:00)
[2017-06-02] MEDS ORDERED: METOPROLOL SUCCINATE XR 25 MG TAB PO SCH (09:00)
[2017-06-02] MEDS ORDERED: DABIGATRAN ETEXILATE MESYL 150 MG CAP PO SCH (09:00)
[2017-06-02] MEDS: oxyCODONE IR 5 MG TAB PO PRN (10:00)
--- NOTE | 2017-06-02 11:02 | ASMTCMCOM ---
CM Note CM Note Notes: Patient is POD #[address] Hinton. Per patient request, he will have home PT with [facility]. Jazzy @ [facility] notified and accepts. Patient's address/phone confirmed; his will transport him home. Date Signed: 06/02/2017 11:01 AM Electronically Signed By:Noemi Dawkins RN
--- NOTE | 2017-06-02 11:02 | ASMTCMCOM ---
CM Note CM Note Notes: Patient is POD #[address] Hinton. Per patient request, he will have home PT with [facility]. Jazzy @ [facility] notified and accepts. Patient's address/phone confirmed; his will transport him home. Date Signed: 06/02/2017 11:01 AM Electronically Signed By:Noemi Dawkins RN
--- NOTE | 2017-06-02 11:02 | ASMTCMCOM ---
CM Note CM Note Notes: Patient is POD #[address] Hinton. Per patient request, he will have home PT with [facility]. Jazzy @ [facility] notified and accepts. Patient's address/phone confirmed; his will transport him home. Date Signed: 06/02/2017 11:01 AM Electronically Signed By:Noemi Dawkins RN
--- NOTE | 2017-06-02 14:23 | ASDISCHSUM ---
Discharge Information Plan Status:Home with Home Health Medically Cleared to Leave: Discharge Date:06/02/2017 11:47 AM CM D/C Disposition:Home Health Service ADT D/C Disposition:Home Health Service Projected Discharge Date:06/02/2017 11:47 AM Transportation at D/C:Family Discharge Delay Reason: Follow-Up Date:06/02/2017 11:47 AM Discharge Slot: Final Diagnosis: Placement Information Patient Contact Information Contact Name:VIOLETA Relationship: Address:[address] Work Phone: City:[place] Phone: State/Zip Code:[place] [address] Email: Financial Information Financial Class: Primary Plan Desc:MEDICARE INPATIENT Primary Plan Number:[id number] Secondary Plan Desc:YADIRA PPO Secondary Plan Number:[id number] Assessment Information [facility] CM Progress Note CM Note CM Note Notes: Patient is POD #[address] Hinton. Per patient request, he will have home PT with [facility]. Jazzy @ [facility] notified and accepts. Patient's address/phone confirmed; his will transport him home. Date Signed: 06/02/2017 11:01 AM Electronically Signed By:Noemi Dawkins RN Intervention Information
--- NOTE | 2017-06-02 14:23 | ASDISCHSUM ---
Discharge Information Plan Status:Home with Home Health Medically Cleared to Leave: Discharge Date:06/02/2017 11:47 AM CM D/C Disposition:Home Health Service ADT D/C Disposition:Home Health Service Projected Discharge Date:06/02/2017 11:47 AM Transportation at D/C:Family Discharge Delay Reason: Follow-Up Date:06/02/2017 11:47 AM Discharge Slot: Final Diagnosis: Placement Information Patient Contact Information Contact Name:VIOLETA Relationship: Address:[address] Work Phone: City:[place] Phone: State/Zip Code:[place] [address] Email: Financial Information Financial Class: Primary Plan Desc:MEDICARE INPATIENT Primary Plan Number:[id number] Secondary Plan Desc:YADIRA PPO Secondary Plan Number:[id number] Assessment Information [facility] CM Progress Note CM Note CM Note Notes: Patient is POD #[address] Hinton. Per patient request, he will have home PT with [facility]. Jazzy @ [facility] notified and accepts. Patient's address/phone confirmed; his will transport him home. Date Signed: 06/02/2017 11:01 AM Electronically Signed By:Noemi Dawkins RN Intervention Information
--- NOTE | 2017-06-02 14:23 | ASDISCHSUM ---
Discharge Information Plan Status:Home with Home Health Medically Cleared to Leave: Discharge Date:06/02/2017 11:47 AM CM D/C Disposition:Home Health Service ADT D/C Disposition:Home Health Service Projected Discharge Date:06/02/2017 11:47 AM Transportation at D/C:Family Discharge Delay Reason: Follow-Up Date:06/02/2017 11:47 AM Discharge Slot: Final Diagnosis: Placement Information Patient Contact Information Contact Name:VIOLETA Relationship: Address:[address] Work Phone: City:[place] Phone: State/Zip Code:[place] [address] Email: Financial Information Financial Class: Primary Plan Desc:MEDICARE INPATIENT Primary Plan Number:[id number] Secondary Plan Desc:YDAIRA PPO Secondary Plan Number:[id number] Assessment Information [facility] CM Progress Note CM Note CM Note Notes: Patient is POD #[address] Hinton. Per patient request, he will have home PT with [facility]. Jazzy @ [facility] notified and accepts. Patient's address/phone confirmed; his will transport him home. Date Signed: 06/02/2017 11:01 AM Electronically Signed By:Noemi Dawkins RN Intervention Information
== END 2017-06-02 11:47 | disposition home health service (06) | DRG 470 ==
LOC: F3N 05:41
PROVIDERS: ADMIT Orthopaedic Surgery; ATTEND Orthopaedic Surgery
PROC: 0SRC0J9 Replacement of Right Knee Joint with Synthetic Substitute, Cemented, Open Approach (ICD-10-PCS; principal; 2017-06-01 07:15)
DX: M17.11 Unilateral primary osteoarthritis, right knee (principal); I48.91 Unspecified atrial fibrillation; E78.5 Hyperlipidemia, unspecified; N40.1 Benign prostatic hyperplasia with lower urinary tract symptoms; G47.33 Obstructive sleep apnea (adult) (pediatric); Z87.891 Personal history of nicotine dependence; Z79.01 Long term (current) use of anticoagulants; Z96.652 Presence of left artificial knee joint
CPT/HCPCS: 97110-GP; 97116-GP; 97161-GP; 97165-GO; C1713; G8978-GP-CI; G8978-GP-CJ; G8979-GP-CI; G8980-GP-CI; G8987-GO-CI; G8988-GO-CI; G8989-GO-CI; J0171; J0690; J1100; J1885; J2704; J2795